=== PATIENT | female | born 1960 | race Caucasian/White ===

== ENCOUNTER 2025-01-10 10:58 | Outpatient (CLI) | payer BC | END 2025-01-10 10:59 | disposition home or self-care (01) | LOC: SCSRAD 10:58 | PROVIDERS: ATTEND Family Medicine | DX: M54.2 Cervicalgia (principal); M47.812 Spondylosis without myelopathy or radiculopathy, cervical region; M48.02 Spinal stenosis, cervical region | CPT/HCPCS: 72050 ==